=== PATIENT | female | born 1990 | race Two or more races ===

== ENCOUNTER 2018-09-28 18:18 | Emergency (ER) | payer BC ==
[~2018-09-28] VITALS: Ht 167.6 cm; Wt 63.5 kg
[2018-09-28 18:29] VITALS: BP 115/65
[2018-09-28 19:58] LABS: Urine Bacteria FEW /hpf (None Seen); Urine Blood Negative /uL (Negative); Urine Mucus FEW (None Seen); Urine Specific Gravity 1.023 (1.001-1.035); Urine WBC 5 /hpf (0 - 5)
== END 2018-09-29 04:29 | disposition left against medical advice (07) ==
LOC: ER 18:38
DX: O20.9 Hemorrhage in early pregnancy, unspecified (principal); Z3A.08 8 weeks gestation of pregnancy; Z53.21 Procedure and treatment not carried out due to patient leaving prior to being seen by health care provider
CPT/HCPCS: 36415; 81001; 84702